=== PATIENT | female | born 2000 | race Caucasian/White ===

== ENCOUNTER 2023-11-12 19:23 | Emergency (ER) | payer SELFPAY ==
[~2023-11-12] VITALS: Ht 157.5 cm; Wt 83.2 kg
[2023-11-12 19:30] VITALS: BP 132/71; TEMP 98.2
[2023-11-12] MEDS ORDERED: Ibuprofen 600 MG TAB PO ONE (20:15)
[2023-11-12 21:20] VITALS: PULSE 80
== END 2023-11-12 21:20 | disposition home or self-care (01) ==
LOC: COL.ER 19:23
DX: S93.601A Unspecified sprain of right foot, initial encounter (principal); S93.401A Sprain of unspecified ligament of right ankle, initial encounter; W01.0XXA Fall on same level from slipping, tripping and stumbling without subsequent striking against object, initial encounter; X50.1XXA Overexertion from prolonged static or awkward postures, initial encounter; Y92.89 Other specified places as the place of occurrence of the external cause; Y99.0 Civilian activity done for income or pay